=== PATIENT | male | born 1990 | race Two or more races ===

== ENCOUNTER 2022-04-20 19:30 | Emergency (ER) | payer OTHER, SELFPAY ==
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
[2022-04-20 20:10] VITALS: BP 156/83; PULSE 115; RESP 16; TEMP 36.7; O2SAT 98; BMI 27.7
--- OUTSIDE RECORDS SUMMARY | 2022-04-20 20:21 | XMS_ITS | Continuity of Care Document ---
:1990 Author Organization [facility] Address [address] [place] [address]- Care Team Providers Name Role Phone Not on Staff, PCP Primary Care Physician Unavailable Encounter [facility] Date(s): 11/10/20 - 11/17/20 [facility] [address], [place] [address] Encounter Diagnosis Low back pain (Discharge Diagnosis) - 11/10/20 Attending Physician: Rubio Batista DO Allergies, Adverse Reactions, Alerts Substance Reaction Severity Status NKA Active Medications naproxen 500 mg oral tablet 1 tablet = 500 mg, By Mouth, Every 12 hours, for 10 days, # 20 tablet, 0 Refills, Acute 11/20/20 9:37:00 EDT, 11/10/20 9:37:00 EDT, Tablet, [id number], Partial fill upon patient request if the prescription is for a schedule II opioid... Start Date: 11/10/20 Stop Date: 11/20/20 Status: OrderedPepcid AC Maximum Strength 20 mg oral tablet 1 tablet = 20 mg, By Mouth, Daily, # 30 tablet, 0 Refills, Maintenance, Tablet Start Date: 09/26/12 Status: OrderedPercocet-5/325 325 mg-5 mg oral tablet 1, tablet, By Mouth, Every 4 hours, PRN, # 30 tablet, Refills 0, Tot. Refills 0, Maintenance, Pain, 09/27/15 20:46:01, Print Requisition Start Date: 09/27/15 Stop Date: 10/02/15 Status: Ordered Problem List Diagnosis Diagnosis Type Effective Dates Health Status Clinical In formant Service Low back pain Discharge 11/10/20 Diagnosis Vital Signs Most recent to oldest [Reference Range]: 1 Height 183 cm (11/10/20 9:07 AM) Oxygen Saturation [94-100 %] 99 % (11/10/20 9:07 AM) Pulse Rate [55-90 bpm] 73 bpm (11/10/20 9:07 AM) Blood Pressure [90-138/55-84 mm Hg] 112/81 mm Hg (11/10/20 9:07 AM) Respiratory Rate [16-30 br/min] 20 br/min (11/10/20 9:07 AM) Temperature [96.8-100.4 DegF] 98.4 DegF (11/10/20 9:07 AM) Mode of Delivery (Oxygen) Room air (11/10/20 9:07 AM) Blood pressure sites Arm, right (11/10/20 9:07 AM) Temperature Route Temporal (11/10/20 9:07 AM)
--- OUTSIDE RECORDS SUMMARY | 2022-04-20 20:21 | XMS_ITS | Continuity of Care Document ---
:1990 Author Organization [facility] Address [address] [place] [address]- Care Team Providers Name Role Phone Sheldon RIVERA, Corey Primary Care Physician Encounter [facility] Date(s): 11/10/20 - 12/10/20 [facility] [address], [place] [address] Attending Physician: Doe Moseley Admitting Physician: Doe Moseley Referring Physician: Admtr, Doe Allergies, Adverse Reactions, Alerts Substance Reaction Severity Status NKA Active Medications Pepcid AC Maximum Strength 20 mg oral tablet [...]
== END 2022-04-20 20:24 | disposition home or self-care (01) ==
PROVIDERS: Emergency Provider Emergency Medicine
DX: S13.4XXA Sprain of ligaments of cervical spine, initial encounter (principal); V43.52XA Car driver injured in collision with other type car in traffic accident, initial encounter; Y93.9 Activity, unspecified; Y92.410 Unspecified street and highway as the place of occurrence of the external cause; Y99.9 Unspecified external cause status
CPT/HCPCS: 99282; 99283